=== PATIENT | male | born 1995 | race Caucasian/White ===

== ENCOUNTER 2017-10-19 01:10 | Emergency (ER) | payer BC ==
[~2017-10-19] VITALS: Ht 162.6 cm; Wt 65.0 kg
[2017-10-19 03:50] VITALS: BP 126/88
== END 2017-10-19 03:50 | disposition home or self-care (01) ==
LOC: ER 01:16
DX: R07.89 Other chest pain (principal); Z98.890 Other specified postprocedural states
CPT/HCPCS: 71045; 99284; Z7610; 93005